=== PATIENT | female | born 2000 ===

== ENCOUNTER 2022-07-30 15:54 | Outpatient (RCR) | payer OTHER | END 2022-08-02 | LOC: PT 15:54 | PROVIDERS: ATTEND Specialist | DX: S39.012A Strain of muscle, fascia and tendon of lower back, initial encounter (principal) ==

== ENCOUNTER 2022-08-08 15:56 | Outpatient (RCR) | payer OTHER | END 2022-09-02 | LOC: PT 15:56 | PROVIDERS: ATTEND Specialist | DX: S39.012A Strain of muscle, fascia and tendon of lower back, initial encounter (principal) ==